=== PATIENT | female | born 1995 | race African-American/Black ===

== ENCOUNTER 2017-11-04 17:02 | Emergency (ER) | payer MEDICARE, MEDICAID ==
[~2017-11-04] VITALS: Ht 167.6 cm; Wt 77.1 kg
[~2017-11-04 17:02] MED LIST: TRAZODONE HCL150 MG ORAL
--- NOTE | 2017-11-04 17:22 | Emergency Room Report ---
History of Present Illness General Chief Complaint: Altered Mental Status Source: EMS (Colleen Sahu) Present Illness HPI 21-year-old female presents to the emergency department brought by ambulance for altered mental status. Patient was found laying face down on the floor of the drug rehabilitation facility where she was alert and breathing on her own however she was not having any verbal responses. Therefore HPI and ROS is limited. EMS was able to gather past medical history of psych and methamphetamine use and known names of medications for her psychiatric disorder however trazodone was listed. (Colleen Sahu) Allergies: Coded Allergies: No Known Allergies (Unverified , 11/04/17) Patient History Past Medical History: see triage record, psych hx, other - drug abuse/ dependency Past Surgical History: none Pertinent Family History: none Social History: Reports: drug use - methamphetamine use hx. Last Menstrual Period: Unk Immunizations: UTD Reviewed Nursing Documentation: PMH: Agreed, PSxH: Agreed (Colleen Sahu) Nursing Documentation-PMH History Of Psychiatric Problem: Yes - Unk specifics (Colleen Sahu) Review of Systems All Other Systems: limited - Pt. alert but not verbally responsive. (Colleen Sahu) Physical Exam Vital Signs Date Time Temp Pulse Resp B/P (MAP) Pulse Ox O2 Delivery O2 Flow Rate FiO2 11/04/17 16:59 84 16 116/74 99 Room Air Sp02 EP Interpretation: reviewed, normal General Appearance: other - GCS 11 - no verbal response, 6 motor, 4 eye opening. Head: normocephalic, atraumatic Eyes: bilateral eye normal inspection, bilateral eye PERRL ENT: hearing grossly normal, other - no obvious oral trauma Neck: full range of motion, no bony tend Respiratory: chest non-tender, lungs clear, normal breath sounds, no rhonchi, no wheezing Cardiovascular #1: regular rate, rhythm, no edema, normal capillary refill Gastrointestinal: normal bowel sounds, non tender, soft, non-distended Rectal: deferred Musculoskeletal: back normal, normal range of motion, non-tender Neurologic: alert, responsive - motor response, and follows some commands, limited verbal response. , motor strength/tone normal, sensory intact, speech normal, grossly normal Psychiatric: other - unable to fully assess, flattened/ blunted affect noted. Skin: normal color, no rash, warm/dry, well hydrated (Colleen Sahu) Medical Decision Making PA Attestation Dr. kathleen is my supervising Physician whom patient management has been discussed with. (Colleen Sahu) Diagnostic Impression: Primary Impression: Altered mental status Qualified Codes: R41.82 - Altered mental status, unspecified Additional Impressions: Medication side effects Transient organic psychosis Substance abuse ER Course Pt is alert, follows some commands, does not produce verbal responses, has flattened affect. Ddx considered but are not limited to OD, SI/HI, psychosis, UTI, intoxication, CVA, arrhythmia just to name a few. Vital signs: are WNL, pt. is afebrile H&PE are most consistent with Alert Young female with a patent airway that is sinus tachycardic with no evidence of hypoxia at this time. Will do AMS work up and check for acute intoxication as well and treat accordingly. ORDERS: -CBC, CMP: Elevated WBC's 22k , otherwise unremarkable. -UA: negative for infection see results attached. -UDS: Positive for Amphetamines -Salicylates and Acetaminophen - no acute intoxication. -EK Bpm Sinus Tachycardia without acute ST segment changes. ED INTERVENTIONS: -IV access established -1 Liter NS Bolus - 1mg Ativan IV DISPOSITION: Pt is signed out to Dr. Newby. Labs Test 11/04/17 17:27 11/04/17 18:30 White Blood Count 22.0 K/UL (4.8-10.8) Red Blood Count 4.90 M/UL (4.20-5.40) Hemoglobin 14.7 G/DL (12.0-16.0) Hematocrit 44.2 % (37.0-47.0) Mean Corpuscular Volume 90 FL (80-99) Mean Corpuscular Hemoglobin 30.1 PG (27.0-31.0) Mean Corpuscular Hemoglobin Concent 33.3 G/DL (32.0-36.0) Red Cell Distribution Width 11.0 % (11.6-14.8) Platelet Count 412 K/UL (150-450) Mean Platelet Volume 6.7 FL (6.5-10.1) Neutrophils (%) (Auto) % (45.0-75.0) Lymphocytes (%) (Auto) % (20.0-45.0) Monocytes (%) (Auto) % (1.0-10.0) Eosinophils (%) (Auto) % (0.0-3.0) Basophils (%) (Auto) % (0.0-2.0) Differential Total Cells Counted 100 Neutrophils % (Manual) 85 % (45-75) Lymphocytes % (Manual) 11 % (20-45) Monocytes % (Manual) 2 % (1-10) Eosinophils % (Manual) 0 % (0-3) Basophils % (Manual) 0 % (0-2) Band Neutrophils 2 % (0-8) Platelet Estimate Adequate Platelet Morphology Normal Red Blood Cell Morphology Normal Sodium Level 140 MMOL/L (136-145) Potassium Level 3.5 MMOL/L (3.5-5.1) Chloride Level 102 MMOL/L (98-107) Carbon Dioxide Level 29 MMOL/L (21-32) Anion Gap 9 mmol/L (5-15) Blood Urea Nitrogen 9 mg/dL (7-18) Creatinine 1.2 MG/DL (0.55-1.30) Estimat Glomerular Filtration Rate 56.7 mL/min (>60) Glucose Level 110 MG/DL (74-106) Calcium Level 9.4 MG/DL (8.5-10.1) Total Bilirubin 0.3 MG/DL (0.2-1.0) Aspartate Amino Transf (AST/SGOT) 16 U/L (15-37) Alanine Aminotransferase (ALT/SGPT) 22 U/L (12-78) Alkaline Phosphatase 111 U/L (46-116) Total Protein 8.6 G/DL (6.4-8.2) Albumin 4.1 G/DL (3.4-5.0) Globulin 4.5 g/dL Albumin/Globulin Ratio 0.9 (1.0-2.7) Salicylates Level 1.6 ug/mL (2.8-20) Acetaminophen Level < 2 MCG/ML (10-30) Serum Alcohol < 3 mg/dL Urine Color Pale yellow Urine Appearance Clear Urine pH 6 (4.5-8.0) Urine Specific [place] 1.015 (1.005-1.035) Urine Protein 1+ (NEGATIVE) Urine Glucose (UA) Negative (NEGATIVE) Urine Ketones Negative (NEGATIVE) Urine Occult Blood Negative (NEGATIVE) Urine Nitrite Negative (NEGATIVE) Urine Bilirubin Negative (NEGATIVE) Urine Urobilinogen Normal MG/DL (0.0-1.0) Urine Leukocyte Esterase Negative (NEGATIVE) Urine RBC 0-2 /HPF (0 - 2) Urine WBC 0-2 /HPF (0 - 2) Urine Squamous Epithelial Cells Occasional /LPF Urine Amorphous Sediment Moderate /LPF (NONE) Urine Bacteria Few /HPF (NONE) Urine HCG, Qualitative Negative Urine Opiates Screen Negative (NEGATIVE) Urine Barbiturates Screen Negative (NEGATIVE) Phencyclidine (PCP) Screen Negative (NEGATIVE) Urine Amphetamines Screen Positive (NEGATIVE) Urine Benzodiazepines Screen Negative (NEGATIVE) Urine Cocaine Screen Negative (NEGATIVE) Urine Marijuana (THC) Screen Negative (NEGATIVE) (Colleen Sahu) ER Course See above note. WBC less. Patient afebrile. She had been given Zyprexa during the night. Medically cleared for psychiatric treatment. Evaluated by Dr. Baker. Recommended Haldol decanoate. Given. Patient OX3, improved. Denies SI or HI. Provided transport to treatment facility and accepted there. Patient stable for outpatient observation and treatment. (Vishal Salazar M.D.) EKG Diagnostic Results EP Interpretation: Dr. Allan Rate: tachycardiac - 137 Rhythm: NSR ST Segments: no acute changes ASA given to the pt in ED: No PA Scribe Text Interpreted by Dr. Allan, his interpretation was scribed by JAYA Sahu ([email or web address]) Last Vital Signs Date Time Temp Pulse Resp B/P (MAP) Pulse Ox O2 Delivery O2 Flow Rate FiO2 11/04/17 16:59 84 16 116/74 99 Room Air (Colleen Sahu) Status: improved (Vishal Salazar M.D.) Disposition: HOME, SELF-CARE - psychiatric program Condition: Improved Signed Out To: Dr. Newby (Colleen Sahu) Colleen Sahu Nov 04, 2017 17:22 Vishal Salazar M.D. Nov 05, 2017 09:31
[2017-11-04] MEDS ORDERED: LORazepam Inj 2mg/ml 1ml IV ONE (17:30)
[2017-11-04 17:41] LABS: HEMATOCRIT 44.2 % (37.0-47.0); HEMOGLOBIN 14.7 G/DL (12.0-16.0); MEAN CORPUSCULAR VOLUME 90 FL (80-99); PLATELET COUNT 412 K/UL (150-450)
[2017-11-04 18:04] LABS: ANION GAP 9 mmol/L (5-15); BLOOD UREA NITROGEN 9 mg/dL (7-18); CALCIUM 9.4 MG/DL (8.5-10.1); CARBON DIOXIDE 29 MMOL/L (21-32); CHLORIDE 102 MMOL/L (98-107); CREATININE 1.2 MG/DL (0.55-1.30); POTASSIUM 3.5 MMOL/L (3.5-5.1); SODIUM 140 MMOL/L (136-145)
[2017-11-04 18:08] LABS: ALANINE AMINOTRANSFERASE 22 U/L (12-78); ALBUMIN 4.1 G/DL (3.4-5.0); ALBUMIN/GLOBULIN RATIO 0.9 (1.0-2.7); ALKALINE PHOSPHATASE 111 U/L (46-116); ASPARTATE AMINO TRANSFERASE 16 U/L (15-37); BILIRUBIN,TOTAL 0.3 MG/DL (0.2-1.0)
[2017-11-04 18:35] VITALS: BP 137/89
[2017-11-04 19:01] LABS: APPEARANCE,URINE CLEAR; BILIRUBIN, URINE NEGATIVE (NEGATIVE); COLOR,URINE PALE YELLOW; GLUCOSE, URINE (UA) NEGATIVE (NEGATIVE); KETONES,URINE NEGATIVE (NEGATIVE); LEUKOCYTE ESTERASE ,URINE NEGATIVE (NEGATIVE); NITRITE,URINE NEGATIVE (NEGATIVE); PH,URINE 6 (4.5-8.0); PROTEIN,URINE 1+ (NEGATIVE); UROBILINOGEN,URINE NORMAL MG/DL (0.0-1.0)
[2017-11-04] MEDS ORDERED: DiphenhydrAMINE 50mg/ml Inj IVP ONE (19:30)
[2017-11-05 01:15] VITALS: BP 128/96
[2017-11-05 04:45] VITALS: BP 135/90
[2017-11-05 07:25] VITALS: BP 103/69
[2017-11-05 07:43] LABS: BASOPHILS % (AUTO) 0.3 % (0.0-2.0); EOSINOPHILS % (AUTO) 0.1 % (0.0-3.0); HEMATOCRIT 37.8 % (37.0-47.0); HEMOGLOBIN 12.9 G/DL (12.0-16.0); MEAN CORPUSCULAR VOLUME 91 FL (80-99); MONOCYTES % (AUTO) 6.7 % (1.0-10.0); NEUTROPHILS % (AUTO) 76.8 % (45.0-75.0); PLATELET COUNT 344 K/UL (150-450); RED BLOOD COUNT 4.17 M/UL (4.20-5.40); RED CELL DISTRIBUTION WIDTH 11.2 % (11.6-14.8); WHITE BLOOD COUNT 16.2 K/UL (4.8-10.8)
[2017-11-05 12:00] VITALS: BP 111/71
[2017-11-05] MEDS ORDERED: Haloperidol Decanoate 50mg Inj IM ONE (12:15)
--- NOTE | 2017-11-05 13:45 | Consultation ---
History of Present Illness General Date patient seen: Nov 05, 2017 Chief Complaint: Altered Mental Status Present Illness HPI 21-year-old female presents to the emergency department brought by ambulance for altered mental status. the pt is coming from a treatment program, relapsed on meth. the pt was confused and was given Zyprexa 20mg last night. the pt was calm and oriented this am. the pt is not endorsing SI/HI. the pt would like to go back to her living arrangement. the pt admits that she has been using meth. Allergies: Coded Allergies: No Known Allergies (Unverified , 11/04/17) Medication History Scheduled Trazodone* (Trazodone*), 150 MG ORAL BEDTIME, (Reported) Patient History Limited by: medical condition History Provided By: Patient, Medical Record, PMD Healthcare decision maker Resuscitation status Advanced Directive on File Past Medical/Surgical History Past Medical/Surgical History: (1) Substance abuse (2) Transient organic psychosis (3) Altered mental status (4) Medication side effects Review of Systems Psychiatric: Reports: prior hx, anxiety, depressed feelings, emotional problems Physical Exam General Appearance: no apparent distress, alert Neurologic: alert, oriented x 3, responsive, depressed affect Last 24 Hour Vital Signs Date Time Temp Pulse Resp B/P (MAP) Pulse Ox O2 Delivery O2 Flow Rate FiO2 11/05/17 12:00 98.1 90 15 111/71 98 Room Air 98.1 11/05/17 07:25 98.3 93 16 103/69 96 Room Air 98.3 11/05/17 04:45 98.4 106 16 135/90 97 Room Air 98.4 11/05/17 01:15 120 18 128/96 96 Room Air 11/04/17 18:35 112 28 137/89 92 Room Air 11/04/17 16:59 84 16 116/74 99 Room Air Intake and Output 11/04/17 11/05/17 19:00 07:00 Intake Total 1000 ml 500 ml Balance 1000 ml 500 ml Intake IV Total 1000 ml 500 ml # Voids 1 Laboratory Tests Test 11/04/17 17:27 11/04/17 18:30 11/05/17 07:32 White Blood Count 22.0 K/UL (4.8-10.8) H 16.2 K/UL (4.8-10.8) H Red Blood Count 4.90 M/UL (4.20-5.40) 4.17 M/UL (4.20-5.40) L Hemoglobin 14.7 G/DL (12.0-16.0) 12.9 G/DL (12.0-16.0) Hematocrit 44.2 % (37.0-47.0) 37.8 % (37.0-47.0) Mean Corpuscular Volume 90 FL (80-99) 91 FL (80-99) Mean Corpuscular Hemoglobin 30.1 PG (27.0-31.0) 31.0 PG (27.0-31.0) Mean Corpuscular Hemoglobin Concent 33.3 G/DL (32.0-36.0) 34.2 G/DL (32.0-36.0) Red Cell Distribution Width 11.0 % (11.6-14.8) L 11.2 % (11.6-14.8) L Platelet Count 412 K/UL (150-450) 344 K/UL (150-450) Mean Platelet Volume 6.7 FL (6.5-10.1) 6.6 FL (6.5-10.1) Neutrophils (%) (Auto) % (45.0-75.0) 76.8 % (45.0-75.0) H Lymphocytes (%) (Auto) % (20.0-45.0) 16.0 % (20.0-45.0) L Monocytes (%) (Auto) % (1.0-10.0) 6.7 % (1.0-10.0) Eosinophils (%) (Auto) % (0.0-3.0) 0.1 % (0.0-3.0) Basophils (%) (Auto) % (0.0-2.0) 0.3 % (0.0-2.0) Differential Total Cells Counted 100 Neutrophils % (Manual) 85 % (45-75) H Lymphocytes % (Manual) 11 % (20-45) L Monocytes % (Manual) 2 % (1-10) Eosinophils % (Manual) 0 % (0-3) Basophils % (Manual) 0 % (0-2) Band Neutrophils 2 % (0-8) Platelet Estimate Adequate Platelet Morphology Normal Red Blood Cell Morphology Normal Sodium Level 140 MMOL/L (136-145) Potassium Level 3.5 MMOL/L (3.5-5.1) Chloride Level 102 MMOL/L (98-107) Carbon Dioxide Level 29 MMOL/L (21-32) Anion Gap 9 mmol/L (5-15) Blood Urea Nitrogen 9 mg/dL (7-18) Creatinine 1.2 MG/DL (0.55-1.30) Estimat Glomerular Filtration Rate 56.7 mL/min (>60) Glucose Level 110 MG/DL (74-106) H Calcium Level 9.4 MG/DL (8.5-10.1) Total Bilirubin 0.3 MG/DL (0.2-1.0) Aspartate Amino Transf (AST/SGOT) 16 U/L (15-37) Alanine Aminotransferase (ALT/SGPT) 22 U/L (12-78) Alkaline Phosphatase 111 U/L (46-116) Total Protein 8.6 G/DL (6.4-8.2) H Albumin 4.1 G/DL (3.4-5.0) Globulin 4.5 g/dL Albumin/Globulin Ratio 0.9 (1.0-2.7) L Salicylates Level 1.6 ug/mL (2.8-20) L Acetaminophen Level < 2 MCG/ML (10-30) L Serum Alcohol < 3 mg/dL Urine Color Pale yellow Urine Appearance Clear Urine pH 6 (4.5-8.0) Urine Specific [place] 1.015 (1.005-1.035) Urine Protein 1+ (NEGATIVE) H Urine Glucose (UA) Negative (NEGATIVE) Urine Ketones Negative (NEGATIVE) Urine Occult Blood Negative (NEGATIVE) Urine Nitrite Negative (NEGATIVE) Urine Bilirubin Negative (NEGATIVE) Urine Urobilinogen Normal MG/DL (0.0-1.0) Urine Leukocyte Esterase Negative (NEGATIVE) Urine RBC 0-2 /HPF (0 - 2) Urine WBC 0-2 /HPF (0 - 2) Urine Squamous Epithelial Cells Occasional /LPF Urine Amorphous Sediment Moderate /LPF (NONE) H Urine Bacteria Few /HPF (NONE) Urine HCG, Qualitative Negative Urine Opiates Screen Negative (NEGATIVE) Urine Barbiturates Screen Negative (NEGATIVE) Phencyclidine (PCP) Screen Negative (NEGATIVE) Urine Amphetamines Screen Positive (NEGATIVE) H Urine Benzodiazepines Screen Negative (NEGATIVE) Urine Cocaine Screen Negative (NEGATIVE) Urine Marijuana (THC) Screen Negative (NEGATIVE) Height (Feet): 5 Height (Inches): 6.00 Weight (Pounds): 170 Assessment/Plan Status: stable, progressing Assessment/Plan meth abuse ams the pt has stabilized. the pt is not at imminent dts/dto the pt was given haldol dec 50mg IM the pt should be discharged as she does not meet the criteria for dts/dto Colette Baker M.D. Nov 05, 2017 13:45
[2017-11-05 14:37] VITALS: BP 107/72
[2017-11-05 16:47] VITALS: BP 111/70
== END 2017-11-05 16:50 | disposition home or self-care (01) ==
LOC: EDBD 17:02 → EMR 17:30
DX: F15.10 Other stimulant abuse, uncomplicated (principal); R41.82 Altered mental status, unspecified
CPT/HCPCS: 36415; 80053; 80307; 81003; 81025; 85007; 85025; 96361; 96372; 96374; 96375; 99284; G0480; J1200; J1631; 80329